=== PATIENT | female | born 1935 | race Caucasian/White ===

== ENCOUNTER 2018-02-02 10:20 | Day surgery (SDC) | payer MEDICARE, OTHER ==
[~2018-02-02 10:20] MED LIST: Buffered Lidocaine 0.9% SYRIN* 5 ML/SYR SYRINGE INTRADERM ONE
[2018-02-02] MEDS ORDERED: Lidocaine 2% PF * 5 ML VIAL ONE (11:50)
[2018-02-02] MEDS ORDERED: Propofol* 10 MG/ML 20 ML BTL ONE (11:50)
[2018-02-02] MEDS ORDERED: Cyclopentolate 1% OPTH.SOL* 2 ML BTL ONE (12:15)
[2018-02-02] MEDS ORDERED: Ketorolac 0.5% OPHTH (NF) 0.5 % 5 ML BTL ONE (12:15)
[2018-02-02] MEDS ORDERED: Phenylephrine 2.5% OPTH.SOL* 2 ML BTL ONE (12:15)
[2018-02-02] MEDS ORDERED: Lidocaine 1%* 5 ML VIAL ONE (12:15)
[2018-02-02] MEDS ORDERED: Neomycin/Polymy/Dex OPHTH.OIN* 3.5 GM ONE (12:15)
[2018-02-02] MEDS ORDERED: Tropicamide 1% OPTH.SOL* BTL ONE (12:15)
[2018-02-02] MEDS ORDERED: Tetracaine 0.5% OPTH.SOL 4 ML* 1 DROP BTL ONE (12:15)
[2018-02-02 12:28] VITALS: BP 110/71
--- NOTE | 2018-02-03 07:35 | OP ---
DATE OF OPERATION: 02/02/18 - [facility] DATE OF : 31 SURGEON: Toño Boyle MD. RETAIL SEASONAL SPECIALIST: None. ANESTHESIA: Topical with intravenous sedation. PRE-OP DIAGNOSIS: Cataract and glaucoma, left eye. POST-OP DIAGNOSIS: Cataract and glaucoma, left eye. OPERATIVE PROCEDURE: Phacoemulsification and cataract extraction with posterior chamber intraocular lens implant and iStent implant, left eye. COMPLICATIONS: None. BLOOD LOSS: None. DESCRIPTION OF PROCEDURE: The patient was brought to the operating room and given intravenous sedation. A drop of tetracaine was placed in her left eye. The patient was prepped and draped in the usual sterile fashion for ophthalmic surgery and attention was directed to the left eye where a speculum was placed. A paracentesis was created at the 5 o'clock position and 0.1 cc of 1% preservative- free lidocaine was injected into the anterior chamber followed by DisCoVisc. The eye was digitally stabilized while a 2.75 mm keratome was used to create a triplanar clear corneal incision at the 3 o'clock position. A continuous curvilinear capsulorrhexis was created with a cystotome and Utrata forceps. BSS on a cannula was used to hydrodissect the lens from the capsule. Phacoemulsification was performed in a [id number] technique to create 4 fragments, which were removed. Residual cortical material was removed with irrigation and aspiration. DisCoVisc was used to inflate the capsular bag. An [id number] 17.0 diopter lens was inserted into the capsular bag. Supplemental DisCoVisc was used to deepen the anterior chamber and coat the surface of the cornea. The patient's head was rotated away from the surgeon and the microscope was rotated toward the surgeon. A gonioprism was placed on the surface of the eye. An iStent leather cutter was introduced into the anterior chamber. Under direct visualization, an iStent inject was placed at the 8 o' clock and then 10 o'clock position. The leather cutter and prism were removed. The patient's head and the microscope were returned to the upright position. Irrigation and aspiration were performed to remove viscoelastic from the eye. BSS on the cannula was used to hydrate the corneal stroma and seal the wound. At the end of the case, the pupil was round. The lens was centered and stable. The iStent injects were in good position. The pressure appeared normal and the wound was water tight. The speculum was removed and topical Maxitrol ointment was placed on the surface of the eye. The eye was closed, patched and shielded and the patient was sent to the recovery room in stable condition with postoperative instructions and followup appointment given. [id number]/[facility] #: [id number] ZBIGNIEW
== END 2018-02-02 12:35 | disposition home or self-care (01) ==
LOC: OREAST 10:20
PROVIDERS: ATTEND Ophthalmology
DX: H25.12 Age-related nuclear cataract, left eye (principal); H40.1121 Primary open-angle glaucoma, left eye, mild stage; R00.2 Palpitations; K21.9 Gastro-esophageal reflux disease without esophagitis; Z85.3 Personal history of malignant neoplasm of breast; M81.0 Age-related osteoporosis without current pathological fracture
CPT/HCPCS: A9270-GY; C1783; J2704; V2632

== ENCOUNTER 2018-03-12 14:13 | Emergency (ER) | payer MEDICARE, OTHER ==
--- OUTSIDE RECORDS SUMMARY | 2018-03-12 14:41 | XMS REPORT | Continuity of Care Document ---
:1935 External Reference #:[id number] Author Name Halley Crum PA-C Address [facility] [id number] Care Team Providers Name Role Phone Estefania Moore MD Primary Care Physician Unavailable Payers Type Date Identification Numbers Payment Provider Subscriber Policy Number: [id number] Medicare Yuki Saavedra PayID: [id number] [facility] [address] [place] [address] Policy Number: [id number] [employer] Yuki Saavedra Group Number: [id number] [address] PayID: [id number] [place] [address] Advance Directives Description No Information Available Problems Date Description Provider Status Onset: 01/08/2012 Malignant tumor of colon Amor Gerber MD Active Onset: 01/08/2012 Irritable bowel syndrome Amor Gerber MD Active Onset: 01/08/2012 Generalized anxiety disorder Amor Gerber MD Active Onset: 01/08/2012 Gastroesophageal reflux disease Amor Gerber MD Active Onset: 02/12/2018 Nausea Halley Crum PA-C Active Onset: 02/12/2018 Epigastric pain Halley Crum PA-C Active Family History Description No Information Available Social History Type Date Description Comments Sex Unknown ETOH Use Occasionally consumes alcohol Tobacco Use Start: Unknown End: Unknown Patient is a former smoker Smoking Status Reviewed: 02/12/18 Patient is a former smoker Allergies, Adverse Reactions, Alerts Date Description Reaction Status Severity Comments 01/08/2012 Penicillin Active 01/08/2012 Sulfa Antibiotics Active 01/08/2012 Epinephrine Active 05/16/2013 Tamoxifen Active 01/05/2017 Cortisone Active Medications Medication Date Status Form Strength Qnty SIG Indications Ordering Provider Lansoprazole 02/[address] 30mg 30cap 1 cap by R10.13 Emeli s mouth daily Foor-Pess 30min before in, a meal Prolia 00 Active Solution 60mg/ml inject 60 mg Unknown /0000 subcutaneousl y every 6 months for osteoporosis. pt has medicare - no pa required. Omeprazole Active Capsules DR 20mg 1 by mouth Unknown OTC /0000 every day Latanoprost 00 Active Solution 0.005% Right Eye Unknown /0000 Daily Timolol 00 Active Solution 0.5% bid Right Eye Unknown Maleate /0000 (Daily) Anucort-HC 06/06 Hx Suppository 25mg 20uni 1 pr bid 455.3 Valeria floyd Syed - AMIRA-Scooter 09/24 No Active 01/07 Hx Unknown Medications /2011 - 06/06 Prevacid 24HR [address] 15mg 1 by mouth Unknown /0000 every day if - needed for 02/12 stomach Immunizations Description No Information Available Vital Signs Date Vital Result Comment 02/12/2018 8:26am Height 64 inches 5'4" Weight 176.00 lb BP Systolic 119 mmHg BP Diastolic 71 mmHg Heart Rate 76 /min BMI (Body Mass Index) 30.2 kg/m2 09/24/2016 1:28pm Height 64 inches 5'4" Weight 170.00 lb BP Systolic 128 mmHg BP Diastolic 86 mmHg Heart Rate 94 /min BMI (Body Mass Index) 29.2 kg/m2 06/20/2013 1:50pm Height 66.5 inches 5'6.50" Weight 178.00 lb BMI (Body Mass Index) 28.3 kg/m2 06/06/2013 9:11am Height 66.50 inches 5'6.50" 05/30/2013 10:59am Height 66.50 inches 5'6.50" 05/16/2013 10:04am Height 66.50 inches 5'6.50" Weight 177.00 lb BP Systolic 108 mmHg BP Diastolic 70 mmHg Heart Rate 76 /min BMI (Body Mass Index) 28.1 kg/m2 01/08/2012 3:00pm Height 66.50 inches 5'6.50" Weight 178.00 lb BP Systolic 120 mmHg BP Diastolic 80 mmHg Heart Rate 82 /min BMI (Body Mass Index) 28.3 kg/m2 Results Test Date Facility Test Result H/L Range Note CMP(!) 06/17/2016 [facility] Sodium(!) <pending> Potassium(!) <pending> Chloride Serum/Plasma(!) <pending> Carbon Dioxide Ser/Plasm(!) <pending> BUN - Urea Nitrogen(!) <pending> Calcium Ser/Plasma Mass/Vol(!) <pending> Creatinine Serum Mass/Vol(!) <pending> Glucose Serum(!) <pending> Uric Acid Ser/Plas Mass/Vol(!) <pending> BUN/Creatinine Ratio(!) <pending> Albumin Serum/Plasma(!) <pending> Alkaline Phosphatase(!) <pending> Bilirubin Total Mass/Vol(!) <pending> Ast - Sgot <pending> Alt - SGPT <pending> Protein Total <pending> Vitamin D 06/17/2016 [facility] Z#Other <pending> Observations Surgical 02/06/2012 [facility] S RUN DATE: Pathology <SEE NOTE> Todd 04/11/2011 [facility] Z#Other <pending> Observations 1 RUN DATE: 02/10/12 [facility] LAB LIVE PAGE 1 RUN TIME: [address] [place] [address] Specimen Inquiry Name: YUKI SAAVEDRA I : [address]: Buzz SARKAR,Amor Simmons Acct: [id number] Unit: [id number] AGE: 76 Location: ENDO Re02/06/12 SEX: F Status: PRE REF SPEC: [id number] REBECCA: 02/06/12- SUBM DR: Buzz SARKAR, Amor Simmons REQ: [id number] RECD: 02/09/12 STATUS: VANITA ECHOLS DR: Brandi SARKAR,Jerald _ ORDERED: LEVEL IV FINAL DIAGNOSIS Colon, transverse, biopsy: A. Tubular adenoma. B. No high grade dysplasia or malignancy. CLINICAL HISTORY History of colon cancer POST-OPERATIVE DIAGNOSIS Colonoscopy into terminal ileum, prep good - 2 anastomoses, patent and normal ; small transverse colon polyp removed; mild descending colon, diverticulosis; surgical changes GROSS DESCRIPTION The specimen is received in formalin labelled Yuki Saavedra, Transverse Colon Polyp, and consists of a reich, soft tissue fragment measuring 0.3 x 0.1 x 0.1 cm. Submitted entirely, one cassette. Signed (signature on file) Jt Haas MD 1253 END OF REPORT * ML=Testing performed at Main Lab DEPARTMENT OF PATHOLOGY, [address] [place] [address] Jt Haas M.D. Director [facility] Permit #[id number] Procedures Date Code Description Status 02/06/2012 11912 Colonscopy+Biopsy Completed 04/22/2010 43536 EGD+Biopsy Single Or Multiple Completed 11/13/2009 34319 Breath Hydrogen Completed 01/15/2007 71333 Colonscopy+Biopsy Completed 02/09/2004 66267 Colonoscopy With Sub.Injection Completed 02/09/2004 75230 Colonscopy+Biopsy Completed Encounters Type Date Location Provider Dx Diagnosis Office Visit 09/24/2016 [facility] Valeriaeliel Syed, R10.13 Epigastric pain 1:30p [facility] R14.0 Abdominal distension (gaseous) Office Visit 06/20/2013 [facility]enter[facility] Valeria Syed, 565.0 Anal Fissure 1:45p [facility] Office Visit 06/06/2013 Gastroenterology Valeria Syed, 565.0 Anal Fissure 9:15a [facility] 455.3 Hemorrhoids External W/O Complication Office Visit 05/30/2013 [facility]enterology Valeriaeliel Syed, 565.0 Anal Fissure 11:00a [facility] 455.3 Hemorrhoids External W/O Complication Office Visit 05/16/2013 [facility]enterology Valeria 565.0 Anal Fissure 10:00a [facility] Office Visit 01/08/2012 [facility]astroenterology Amor Simmons V10.05 Personal 3:00p [facility] History 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
--- OUTSIDE RECORDS SUMMARY | 2018-03-12 14:41 | XMS REPORT | Continuity of Care Document ---
:1935 External Reference #:[id number] Author Name Toño Boyle M.D. Address [address] [place] [address] [place] [address] Care Team Providers Name Role Phone Estefania Moore MD Care Team Information Residential Real Estate Sales Manager Unavailable Estefania Moore MD Primary Care Physician Unavailable Payers Type Date Identification Numbers Payment Provider Subscriber Policy Number: [id number] Medicare [place] Yuki Mendoza PayID: [id number] [address] [place] [address] Policy Number: [id number] Aetna [facility] Yuki Mendoza Group Number: [id number] [address] PayID: [id number] [place] [address] Advance Directives Description No Information Available Problems Date Description Provider Status Onset: 01/31/2015 Primary open-angle glaucoma, mild stage Carroll Ashford O.D. Active Onset: 01/09/2015 Presbyopia Stephanie Gutierres O.D. Active Onset: 01/09/2015 Regular astigmatism Stephanie Gutierres O.D. Active Onset: 01/09/2015 Myopia Stephanie Gutierres O.D. Active Onset: 01/09/2015 Presence of intraocular lens Stephanie Gutierres O.D. Active Onset: 01/09/2015 Nuclear senile cataract Stephanie uGtierres O.D. Active Onset: 01/09/2015 Hemorrhage in optic nerve sheaths Stephanie Gutierres O.D. Active Onset: 01/09/2015 Ocular hypertension Stephanie Gutierres O.D. Active Onset: 01/09/2015 Nonexudative age-related macular Stephanie Gutierres O.D. Active degeneration Onset: 07/25/2013 Tear film insufficiency Carroll Ashford O.D. Active Onset: 07/25/2013 Vitreous degeneration Carroll Dejon, O.D. Active Family History Date Family Member(s) Problem(s) Comments Father Noncontributory Mother Noncontributory Social History Type Date Description Comments Sex Unknown ETOH Use Rarely consumed alcohol in the past Tobacco Use Start: Unknown End: Unknown Patient is a former smoker Smoking Status Reviewed: 03/11/18 Patient is a former smoker Allergies, Adverse Reactions, Alerts Date Description Reaction Status Severity Comments 07/25/2013 Ibuprofen Active 07/25/2013 Sulfacetamide Active 07/25/2013 Aspirin Active 01/09/2015 Epinephrine Active Medications Medication Date Status Form Strength Qnty SIG Indications Ordering Provider Prolia Active Solution 60mg/ml 60 mg Unknown 000 sc q6mon No Active Hx Unknown Medications 019 - 019 Timolol Maleate Hx Solution 0.5% 10ml 1 drops H40.1133 Toño 018 - both Boyle, eyes M.D. 019 twice a day Vigamox Hx Solution 0.5% 9ml 1 drop Toño 018 - drops Boyle, left M.D. 018 eye four times a day Ketorolac Hx Solution 0.5% 10ml 1 drops Toño Tromethamine 018 - left Boyle, eye M.D. 019 twice a day Pred Forte Hx Suspension 1% 10ml 1 drops Toño 018 - left Boyle, eye M.D. 019 four times a day Latanoprost Hx Solution 0.005% 2.500m 1 drops H40.11x1 Carroll 015 - l [facility], eyes O.D. 019 every night Silver Hx Cream 1% Unknown Sulfadiazine 000 - 018 Xarelto Hx Tablets 15mg Cardina 000 - , Jerald 019 Propranolol HCL Hx Tablets 20mg Unknown 000 - [address] 15mg Unknown 000 - 019 Immunizations Description No Information Available Vital Signs Date Vital Result Comment 03/11/2018 11:30am Intraocular Pressure Right Eye 18 mmHg Intraocular Pressure Left Eye 16 mmHg 02/09/2018 9:59am Intraocular Pressure Right Eye 14 mmHg Intraocular Pressure Left Eye 19 mmHg 02/03/2018 11:41am Intraocular Pressure Left Eye 19 mmHg 01/25/2018 11:53am Intraocular Pressure Right Eye 17 mmHg Intraocular Pressure Left Eye 17 mmHg 01/11/2018 1:11pm Intraocular Pressure Right Eye 17 mmHg Intraocular Pressure Left Eye 17 mmHg Cornea Thickness Left Eye 578 m Cornea Thickness Right Eye 589 m Pachymetry adjusted IOP Right Eye -2 Pachymetry adjusted IOP Left Eye -3 01/31/2015 2:42pm Intraocular Pressure Right Eye 17 mmHg Intraocular Pressure Left Eye 22 mmHg Cornea Thickness Left Eye 539107 m Cornea Thickness Right Eye 144758 m Pachymetry adjusted IOP Right Eye -4 Pachymetry adjusted IOP Left Eye -2 01/09/2015 11:28am Intraocular Pressure Right Eye 18 mmHg Intraocular Pressure Left Eye 25 mmHg Results Description No Information Available Procedures Date Code Description Status 03/11/2018 09834 Ophthalmoscopy Subsequent Completed 03/11/2018 80802 Oct Retina Completed 03/11/2018 52585 Eye Exam Est Intermediate Completed 02/02/2018 17482 Extracapsular Cataract Extraction W/Intraocular Lens Completed 02/02/2018 0474T Insertion Of Anterior Segment Aqueous Drainage Device Completed 01/25/2018 74357 Oct, Optic Nerve Completed 01/25/2018 76621 Visual Field Exam Extended, Unilateral Or Bilateral Completed 01/25/2018 07228 Eye Exam Est Intermediate Completed 01/11/2018 65560 Eye Exam Est Comprehensive Completed 01/11/2018 76437 Ophthalmic Biometry By Partial Coherence Interferometry Completed W/Intra 01/11/2018 45120 Ophthalmoscopy Subsequent Completed 01/11/2018 16574 Fundus Photography W/Interpretation & Report Completed 01/31/2015 42334 Oct, Optic Nerve Completed 01/31/2015 38357 Visual Field Exam Extended, Unilateral Or Bilateral Completed 01/31/2015 05477 Gonioscopy Completed 01/31/2015 85592 Eye Exam Est Intermediate Completed 01/31/2015 38214 Corneal Pachymetry, Unilateral/Bilateral Completed 01/09/2015 26964 Eye Exam Est Comprehensive Completed 01/09/2015 71957 Refraction Completed 01/09/2015 05255 Ophthalmoscopy Initial Completed 01/09/2015 15039 Fundus Photography W/Interpretation & Report Completed 07/25/2013 39289 Refraction Completed 07/25/2013 73162 Eye Exam Est Intermediate Completed 06/10/2011 72115 Ophthalmoscopy Subsequent Completed 06/10/2011 59639 Eye Exam Est Intermediate Completed 04/21/2011 15615 Extracapsular Cataract Extraction W/Intraocular Lens Completed 03/05/2011 36769 Ophthalmic Biometry By Partial Coherence Interferometry Completed W/Intra 03/05/2011 61452 Eye Exam Est Intermediate Completed 02/05/2011 89321 Eye Exam Est Comprehensive Completed 02/05/2011 95140 Refraction Completed 01/16/2010 17489 Ophthalmoscopy Subsequent Completed 01/16/2010 09191 Eye Exam Est Comprehensive Completed 12/15/2008 12510 Ophthalmoscopy Initial Completed 12/15/2008 12204 Refraction Completed 12/15/2008 87441 Eye Exam Est Comprehensive Completed 12/15/2008 86570 Eye Exam New Comprehensive Completed 09/29/2007 94837 Eye Exam New Comprehensive Completed 07/09/2006 99057 Refraction Completed 07/09/2006 61719 Eye Exam Est Intermediate Completed 06/08/2006 12168 Eye Exam New Comprehensive Completed Encounters Description No Information Available Plan of Treatment 03/11/2018 - Toño Boyle M.D.H40.1131 Primary open-angle glaucoma, bilateral , mild bcdnvA01.3131 Nonexudative age-related macular degeneration, bilateral, eaZ96.1 Presence of intraocular lensFollow up:few wks oct mac, iop
--- OUTSIDE RECORDS SUMMARY | 2018-03-12 14:41 | XMS REPORT | Continuity of Care Document ---
:1935 External Reference #:[id number] Author Name Bobbi Engle Care Team Providers Name Role Phone Estefania Moore MD Primary Care Physician Unavailable Payers Type Date Identification Numbers Payment Provider Subscriber Effective: Policy Number: [id number] Medicare Yuki Mendoza 1998 PayID: [id number] [address] [place] [address] Effective: 1998 Policy Number: [employer] Yuki Mendoza [id number] Group Number: [id number] [address] PayID: [id number] [place] [address] Advance Directives Description No Information Available Problems Date Description Provider Status Onset: 09/05/2014 Osteoarthritis of knee Nnamdi Weinberg M.D. Active Onset: 01/03/2015 Localized, primary osteoarthritis Nnamdi Weinberg M.D. Active Onset: 07/06/2017 Multiple fractures of pelvis without Anikta Jim M.D. Active disruption of pelvic ring, initial encounter for closed fracture Family History Date Family Member(s) Problem(s) Comments General Arthritis Social History Type Date Description Comments Sex Unknown Marital Status Lives With Occupation retired probation agent for [employer] ETOH Use Occasionally consumes alcohol ETOH Use Occasionally consumes wine ETOH Use She used to drink 1 glass of wine daily ETOH Use However she has cut back on wine and coffee Tobacco Use Start: Unknown End: Patient is a former smoker Quit age 26 Unknown Recreational Drug Use Denies Drug Use Smoking Status Reviewed: 02/11/18 Patient is a former smoker Quit age 26 Exercise Type/Frequency Exercises rarely Allergies, Adverse Reactions, Alerts Date Description Reaction Status Severity Comments 09/28/2014 Penicillins Nausea and Vomiting Active 09/28/2014 Codeine Rash Active 09/28/2014 Aspirin GI Upset Active 09/28/2014 Ibuprofen GI Upset Active 09/28/2014 Cortisone Tachycardia Active 09/28/2014 Epinephrine Tachycardia Active 07/18/2015 Epinephrine Active 12/22/2016 Clindamycin GI Upset Active Moderate 04/21/2014 NKDA Inactive 07/11/2014 NKDA Inactive Medications Medication Date Status Form Strength Qnty SIG Indications Ordering Provider Neoprenkrish 09/15 Active Misc 2unit use daily for M17.12 Edgar Patella Knee s the left knee Steven Fonseca/Large for M.DMorales stabilization Prolia 08/22 Active Solution 60mg/ml 60mg 60 mg sc q6mon M81.0 Edgar /2015 Elizabeth Fonseca Vitamin B12 00 Active 1 talet Unknown /0000 Biotin 00 Active Capsules 1000mcg 1 by mouth Unknown /0000 every day Potassium OTC Active 99mg. 1 by mouth Unknown /0000 every day Tums Active Chewtabs 500mg as needed Unknown /0000 heartburn Vitamin D3 High Active Capsules 1500Units 1 by mouth Unknown Potency /0000 every day Latanoprost Active Solution 0.005% 1gtt once Unknown /0000 daily to both eyes DGL Licorish Active Unknown Root /0000 Fiber-Lax Active Tablets 625mg take 2 tablets Unknown /0000 by mouth two times a day Prevacid Active Capsules 15mg 1 by mouth Unknown /0000 DR every day Vitamin B-1 Active Tablets 100mg 1 by mouth Unknown /0000 every day Calcium 1000 + 00 Active Tablets 1000-800m 1 by mouth Unknown D /0000 g-Unit every day Eye Drops Active Unknown /0000 Voltaren Active Gel 1% apply 2 grams Unknown /0000 twice daily as needed for pa Timolol Maleate Active Solution 0.25% 1 drop per eye Unknown /0000 daily Chelated Active Tablets 95mg 1 per day Unknown Potassium /0000 Ketorolac Active Solution 0.5% as directed Unknown Tromethamine /0000 Clindamycin HCL 11/12 Hx Capsules 300mg 2caps 600mg 1 hours prior to Lenard, - dental work M.D. 12/22 Percocet 10/13 Hx Tablets 5-325mg 60tab 1-2 by mouth s every 4 to 6 Lenard, - hours as M.D. 11/22 needed pain Tramadol HCL 09/05 Hx Tablets 50mg 60tab 1-2 tabs by s mouth bid with Lenard, - 1 to 2 ES M.D. 11/22 Tylenol as needed for pain Voltaren 07/24 Hx Gel 1% 300g Not Using Lenard, - M.D. 11/22 Gabapentin 04/18 Hx Capsules 100mg 60cap Take one s capsule by Lenard, - mouth two M.D. 06/07 times a day needed for nerve pain Mobic 02/17 Hx Tablets 7.5mg 60tab 1 po bid as s needed Lenard - M.D. 05/11 Potassium 00/00 Hx Unknown /0000 - 07/17 Vitamin D3 High 0000 Hx Unknown Potency /0000 - 11/22 Claritin 00/00 Hx Tablets 10mg by mouth every Unknown /0000 day as needed - 11/22 Clonazepam 0000 Hx Tablets 1mg 1/4 tab qhs Unknown /0000 - 07/07 Acetaminophen 00/00 Hx Capsules 500mg 1 by mouth as Unknown /0000 needed - 11/22 Calcium 600 + D 0000 Hx Tablets 600-200mg 1 by mouth Unknown /0000 -Unit twice a day - 08/16 Calcitonin 00/00 Hx Solution 200Unit/A one spray to Unknown (Allen) /0000 ct nostril; - switching 11/22 nostrils every onther day Sucralfate 00/00 Hx Tablets 1gm 1 by mouth 3 Unknown /0000 times a day - 11/22 Calcium 1200+D3 00/00 Hx Tablets 600-40-50 1 by mouth Unknown /0000 ER 24HR 0mg-mg-Un every day - it 11/22 Vitamin E 00/00 Hx Capsules 200Unit 1 by mouth Unknown /0000 every day - 12/21 Tramadol HCL 00/00 Hx Unknown /0000 - 08/30 Medications Administered in Office Medication Date Status Form Strength Qnty SIG Indications Ordering Provider Prolia Administered Injection Edgar Injection, 018 Raymundo, Denosumab, 1MG M.D. Synvisc Or Administered Injection Ankita Synvisc-One 018 Hernán, M.D. Injection 1 MG Synvisc Or Administered Injection Ankita Synvisc-One 018 Hernán, M.D. Injection 1 MG Synvisc Or Administered Injection Ankita Synvisc-One 018 Hernán, M.D. Injection 1 MG Prolia Administered Injection Edgar Injection, 018 Raymundo, Denosumab, 1MG M.D. Prolia Administered Injection Edgar Injection, 017 Raymundo, Denosumab, 1MG M.D. Prolia Administered Injection Edgar Injection, 017 Raymundo, Denosumab, 1MG M.D. Synvisc Or Administered Injection Nnamdi Synvisc-One 016 Lenard, Injection 1 MG M.D. Synvisc Or Administered Injection Nnamdi Synvisc-One 016 Lenard, Injection 1 MG M.D. Synvisc Or Administered Injection Nnamdi Synvisc-One 016 Lenard, Injection 1 MG M.D. Prolia Administered Injection Edgar Injection, 016 Raymundo, Denosumab, 1MG M.D. Depomedrol Administered Injection Nnamdi 80MG 015 Elizabeth Weinberg Depomedrol Administered Injection Nnamdi 80MG 015 Elizabeth Weinberg Depomedrol Administered Injection Nnamdi 80MG 011 Elizabeth Weinberg Immunizations CPT Code Status Date Vaccine Reaction Lot # [id number] Given 12/04/2015 Influenza Virus Vaccine, No reaction noted [id number] Quadrivalent, Split, Preservative Free Vital Signs Date Vital Result Comment 02/11/2018 1:47pm Height 66 inches 5'6" Weight 176.00 lb w/ shoes Heart Rate 58 /min irregular BP Systolic Sitting 122 mmHg BP Diastolic Sitting 79 mmHg BMI (Body Mass Index) 28.4 kg/m2 09/15/2017 11:14am Height 66 inches 5'6" Weight 172.12 lb Heart Rate 90 /min BP Systolic 129 mmHg BP Diastolic 75 mmHg Respiratory Rate 14 /min Pain Level 1 BMI (Body Mass Index) 27.8 kg/m2 08/31/2017 11:05am Height 66 inches 5'6" Weight 173.00 lb Heart Rate 84 /min BP Systolic 134 mmHg BP Diastolic 86 mmHg BMI (Body Mass Index) 27.9 kg/m2 08/07/2017 10:27am Height 63 inches 5'3" Weight 171.00 lb Heart Rate 72 /min BP Systolic 138 mmHg BP Diastolic 80 mmHg BMI (Body Mass Index) 30.3 kg/m2 07/31/2017 11:27am Height 63 inches 5'3" Weight 171.00 lb Heart Rate 76 /min BP Systolic 128 mmHg BP Diastolic 82 mmHg BMI (Body Mass Index) 30.3 kg/m2 07/22/2017 10:52am Height 66.5 inches 5'6.50" Weight 170.00 lb Heart Rate 84 /min BP Systolic 110 mmHg BP Diastolic 80 mmHg Respiratory Rate 20 /min Body Temperature 97.9 F Pain Level 2 with walking BMI (Body Mass Index) 27.0 kg/m2 03/18/2017 1:00pm Height 66.5 inches 5'6.50" Weight 170.00 lb Heart Rate 84 /min BP Systolic Sitting 130 mmHg BP Diastolic Sitting 80 mmHg Respiratory Rate 14 /min Pain Level 1 BMI (Body Mass Index) 27.0 kg/m2 12/22/2016 11:52am Height 66.5 inches 5'6.50" Weight 174.00 lb with shoes Heart Rate 74 /min BP Systolic Sitting 124 mmHg BP Diastolic Sitting 82 mmHg O2 % BldC Oximetry 96 % BMI (Body Mass Index) 27.7 kg/m2 09/15/2016 2:53pm Height 66.5 inches 5'6.50" Weight 170.00 lb Heart Rate 84 /min BP Systolic Sitting 140 mmHg BP Diastolic Sitting 90 mmHg Respiratory Rate 14 /min Pain Level 1 BMI (Body Mass Index) 27.0 kg/m2 06/16/2016 1:44pm Height 66.5 inches 5'6.50" Weight 170.00 lb Heart Rate 89 /min BP Systolic Sitting 114 mmHg BP Diastolic Sitting 75 mmHg Respiratory Rate 14 /min Body Temperature 97.5 F BMI (Body Mass Index) 27.0 kg/m2 03/24/2016 4:53pm Height 66.5 inches 5'6.50" Weight 173.25 lb Heart Rate 68 /min BP Systolic Sitting 140 mmHg BP Diastolic Sitting 70 mmHg Respiratory Rate 14 /min Body Temperature 97.1 F Pain Level 0 BMI (Body Mass Index) 27.5 kg/m2 12/26/2015 11:08am Height 66.5 inches 5'6.50" Weight 168.00 lb BP Systolic Sitting 118 mmHg BP Diastolic Sitting 68 mmHg Pain Level 1 03/18 discomfort BMI (Body Mass Index) 26.7 kg/m2 12/19/2015 10:45am Height 66.5 inches 5'6.50" Heart Rate 68 /min BP Systolic Sitting 122 mmHg BP Diastolic Sitting 70 mmHg Pain Level 3 pain when walking 12/12/2015 10:46am Height 66.5 inches 5'6.50" Weight 171.00 lb Pain Level 3 L knee 0-R BMI (Body Mass Index) 27.2 kg/m2 12/04/2015 4:43pm BP Systolic Sitting 118 mmHg BP Diastolic Sitting 70 mmHg 12/04/2015 3:00pm Height 64.5 inches 5'4.50" Heart Rate 72 /min BP Systolic 118 mmHg BP Diastolic 70 mmHg BP Systolic Sitting 94 mmHg BP Diastolic Sitting 60 mmHg Respiratory Rate 14 /min Pain Level 5 11/23/2015 11:17am Height 64.5 inches 5'4.50" Weight 169.00 lb Heart Rate 80 /min BP Systolic Sitting 122 mmHg BP Diastolic Sitting 82 mmHg Body Temperature 98.0 F Pain Level 2 BMI (Body Mass Index) 28.6 kg/m2 10/24/2015 12:56pm Height 64.5 inches 5'4.50" Weight 167.00 lb Pain Level 3 BMI (Body Mass Index) 28.2 kg/m2 09/04/2015 10:40am Height 64.5 inches 5'4.50" Weight 167.12 lb Heart Rate 100 /min BP Systolic Sitting 122 mmHg BP Diastolic Sitting 70 mmHg Respiratory Rate 14 /min Body Temperature 98.3 F Pain Level 2 BMI (Body Mass Index) 28.2 kg/m2 08/17/2015 11:55am Height 64.5 inches 5'4.50" Weight 164.00 lb Heart Rate 100 /min BP Systolic Sitting 120 mmHg BP Diastolic Sitting 60 mmHg Respiratory Rate 14 /min Body Temperature 97.1 F Pain Level 0 BMI (Body Mass Index) 27.7 kg/m2 07/18/2015 2:49pm Height 64.5 inches 5'4.50" Weight 164.00 lb Heart Rate 100 /min BP Systolic Sitting 120 mmHg BP Diastolic Sitting 74 mmHg Respiratory Rate 14 /min Body Temperature 98.6 F Pain Level 5 BMI (Body Mass Index) 27.7 kg/m2 04/05/2015 11:37am Height 66.5 inches Weight 180.00 lb Pain Level 0 BMI (Body Mass Index) 28.6 kg/m2 01/03/2015 11:40am Height 66.5 inches 5'6.50" Weight 180.00 lb Pain Level 0 BMI (Body Mass Index) 28.6 kg/m2 10/27/2014 11:39am Height 66.5 inches 5'6.50" Weight 180.00 lb Body Temperature 99.1 F Pain Level 3 BMI (Body Mass Index) 28.6 kg/m2 09/05/2014 11:14am Height 66.5 inches 5'6.50" Weight 180.00 lb Pain Level 8 BMI (Body Mass Index) 28.6 kg/m2 08/01/2014 4:20pm Height 66.5 inches 5'6.50" Weight 180.00 lb Pain Level 8 BMI (Body Mass Index) 28.6 kg/m2 07/11/2014 11:51am Height 66.5 inches 5'6.50" Weight 175.00 lb Pain Level 8 BMI (Body Mass Index) 27.8 kg/m2 05/16/2014 2:20pm Heart Rate 90 /min BP Systolic 130 mmHg BP Diastolic 84 mmHg 04/18/2014 3:02pm Heart Rate 90 /min BP Systolic 131 mmHg BP Diastolic 87 mmHg Results Test Date Facility Test Result H/L Range Note Laboratory test 03/12/2017 [facility] Erythrocyte Sed 29 mm/Hr N 0-[address] [place] [address] [phone] C Reactive Protein 1.72 mg/L N < 5.00 1 Basic Metabolic Panel 03/12/2017 [facility] Sodium 139 mmol/L N 133-[address] [place] [address] [phone] Potassium 4.0 mmol/L N 3.5-5.0 Chloride 107 mmol/L N 101-111 Co2 Carbon Dioxide 28 mmol/L N 22-32 Anion Gap 4 mmol/L N 2-11 Glucose 101 mg/dL High 70-100 Blood Urea Nitrogen 15 mg/dL N 6-24 Creatinine 0.95 mg/dL N 0.51-0.95 BUN/Creatinine Ratio 15.8 N 8-20 Calcium 8.9 mg/dL N 8.6-10.3 Egfr Non- 56.2 >60 Egfr 72.2 >60 2 Laboratory test 06/17/2016 [facility] Erythrocyte Sed 23 mm/Hr N 0-40 [address] [place] [address] [phone] Vitamin D 1,25 06/17/2016 [facility] Vitamin D Total 61.6 ng/mL High 30-50 4 And Vitamin D,[address](Oh) [place] [address] [phone] Vitamin D, 1,25 Dihydroxy 58 pg/mL N 18-78 5 Comp Metabolic Panel 06/17/2016 [facility] Sodium 138 mmol/L N 133-[address] [place] [address] [phone] Potassium 4.1 mmol/L N 3.5-5.0 Chloride 104 mmol/L N 101-111 Co2 Carbon Dioxide 28 mmol/L N 22-32 Anion Gap 6 mmol/L N 2-11 Glucose 90 mg/dL N 70-100 Blood Urea Nitrogen 13 mg/dL N 6-24 Creatinine 0.80 mg/dL N 0.51-0.95 BUN/Creatinine Ratio 16.3 N 8-20 Calcium 9.6 mg/dL N 8.6-10.3 Total Protein 6.6 g/dL N 6.4-8.9 Albumin 3.7 g/dL N 3.2-5.2 Globulin 2.9 g/dL N 2-4 Albumin/Globulin Ratio 1.3 N 1-3 Total Bilirubin 0.50 mg/dL N 0.2-1.0 Alkaline Phosphatase 41 U/L N 34-104 Alt 9 U/L N 7-52 Ast 15 U/L N 13-39 Egfr Non- 68.5 N >60 Egfr 88.1 N >60 6 Laboratory test 06/17/2016 [facility] Creatine 57 U/L N 10- 223 [address] Kinase(CK) [place] [address] [phone] Comp Metabolic 12/03/2015 [facility] Sodium 137 N 133-[address] mmol/[place] [address] [phone] Potassium 4.3 mmol/L N 3.5-5.0 Chloride 106 mmol/L N 101-111 Co2 Carbon Dioxide 25 mmol/L N 22-32 Anion Gap 6 mmol/L N 2-11 Glucose 94 mg/dL N 70-100 Blood Urea Nitrogen 16 mg/dL N 6-24 Creatinine 0.77 mg/dL N 0.51-0.95 BUN/Creatinine Ratio 20.8 High 8-20 Calcium 9.0 mg/dL N 8.6-10.3 Total Protein 6.3 g/dL Low 6.4-8.9 Albumin 3.7 g/dL N 3.2-5.2 Globulin 2.6 g/dL N 2-4 Albumin/Globulin Ratio 1.4 N 1-3 Total Bilirubin 0.40 mg/dL N 0.2-1.0 Alkaline Phosphatase 42 U/L N 34-104 Alt 10 U/L N 7-52 Ast 16 U/L N 13-39 Egfr Non- 71.8 N >60 Egfr 92.3 N >60 8 Laboratory test 12/03/2015 [facility] Creatine 60 U/L N 10- 223 [address] Kinase(CK) [place] [address] [phone] C Reactive Protein < 1.00 mg/L N < 5.00 10 Phosphorus 3.9 mg/dL N 2.5-5.0 11 Vitamin D Total 25(Oh) 50.9 ng/mL High 30-50 12 Laboratory test 09/13/2015 [facility] Cytology SEE RESULT [address] [employer] [place] [address] [phone] Comp Metabolic 07/20/2015 [facility] Sodium 138 mmol/L N 133- [address] [place] [address] [phone] Potassium 4.2 mmol/L N 3.5-5.0 Chloride 106 mmol/L N 101-111 Co2 Carbon Dioxide 27 mmol/L N 22-32 Anion Gap 5 mmol/L N 2-11 Glucose 87 mg/dL N 70-100 Blood Urea Nitrogen 13 mg/dL N 6-24 Creatinine 0.68 mg/dL N 0.51-0.95 BUN/Creatinine Ratio 19.1 N 8-20 Calcium 9.2 mg/dL N 8.6-10.3 Total Protein 6.2 g/dL Low 6.4-8.9 Albumin 3.7 g/dL N 3.2-5.2 Globulin 2.5 g/dL N 2-4 Albumin/Globulin Ratio 1.5 N 1-3 Total Bilirubin 0.40 mg/dL N 0.2-1.0 Alkaline Phosphatase 64 U/L N 34-104 Alt 8 U/L N 7-52 Ast 13 U/L N 13-39 Egfr Non- 82.8 N >60 Egfr 106.5 N >60 14 Laboratory test 07/20/2015 [facility] Erythrocyte Sed 26 mm/Hr N 0-40 [address] [place] [address] [phone] Protein 07/20/2015 [facility] Total 6.6 g/dL N 6.3 - Electrophoresis [address] Protein(Pep) 7.9 [place] [address] [phone] Albumin 3.2 g/dL Abnormal 3.4-4.7 Alpha-1 Globulin 0.3 g/dL N 0.1-0.3 Alpha-2 Globulin 1.0 g/dL N 0.6-1.0 Beta Globulin 0.9 g/dL N 0.7-1.2 Gamma Globulin 1.2 g/dL N 0.6-1.6 Albumin/Globulin Ratio 0.93 N Impression See Comment N 16 Laboratory test 06/29/2015 [facility] TSH (Thyroid 1.42 ?IU/mL N 0.34-5.[address] Stim Horm) [place] [address] [phone] Vitamin D Total 25(Oh) 32.2 ng/mL N 30-50 Pthi 06/29/2015 [facility] Calcium (PTH Intact) 9.2 mg/dL N 8.6-10.[address] [place] [address] [phone] PTH Intact 3.0 pmol/L N 1.3-9.3 Type & Screen 09/25/2014 [facility] Patient Blood Type O Positive N [address] [place] [address] [phone] Antibody Screen NEGATIVE N Laboratory test 09/25/2014 [facility] Urine Culture And SEE RESULT [address] [place] [address] [phone] Basic Metabolic 09/25/2014 [facility] Sodium 138 mmol/L N 133- [address] [place] [address] [phone] Potassium 4.1 mmol/L N 3.5-5.0 Chloride 105 mmol/L N 101-111 Co2 Carbon Dioxide 27 mmol/L N 22-32 Anion Gap 6 mmol/L N 2-11 Glucose 93 mg/dL N 70-100 Blood Urea Nitrogen 13 mg/dL N 6-24 Creatinine 0.82 mg/dL N 0.51-0.95 BUN/Creatinine Ratio 15.9 N 8-20 Calcium 9.2 mg/dL N 8.6-10.3 Egfr Non- 66.9 N >60 Egfr 86.0 N >60 19 Urinalysis Profile 09/25/2014 [facility] Urine Color Yellow [address] [place] [address] [phone] Urine Appearance Cloudy N Urine Specific [place] 1.017 N 1.010-1.030 Urine pH 5.0 N 5-9 Urine Urobilinogen Negative N Negative Urine Ketones Trace Abnormal Negative Urine Protein Negative N Negative Urine Leukocytes 3+ Abnormal Negative Urine Blood 1+ Abnormal Negative Urine Nitrite Negative N Negative Urine Bilirubin Negative N Negative Urine Glucose Negative N Negative Urine White Blood Cell 3+(>20/hpf) Abnormal Absent Urine Red Blood Cell 3+(>10/hpf) Abnormal Absent Urine Bacteria 1+ Abnormal Absent Urine Squamous Epithelial Cell Present Abnormal Absent Urine Transitional Epithelial Present Abnormal Absent Laboratory test 09/25/2014 [facility] Inr/Protime 0.85 N 0.78- 1.07 [address] [place] [address] [phone] CBC No Diff 09/25/2014 [facility] White Blood 7.4 N 4.8-10.[address] Count 10^3/[place] [address] [phone] Red Blood Count 4.37 10^6/uL N 4.0-5.4 Hemoglobin 13.7 g/dL N 12.0-16.0 Hematocrit 42 % N 35-47 Mean Corpuscular Volume 96 fL N 80-97 Mean Corpuscular Hemoglobin 31 pg N 27-31 Mean Corpuscular HGB Conc 32 g/dL N 31-36 Red Cell Distribution Width 14 % N 10.5-15 Platelet Count 166 10^3/uL N 150-450 Mean Platelet Volume 11 um3 High 7.4-10.4 1 Acute inflammation: >10.00 2 Because ethnic data is not always readily available, this report includes an eGFR for both -Americans and non- Americans. The National Kidney Disease Education Program (NKDEP) does not endorse the use of the MDRD equation for patients that are not between the ages of 18 and 70, are , have extremes of body size, muscle mass, or nutritional status, or are non- or non-. According to the National Kidney Foundation, irrespective of diagnosis, the stage of the disease is based on the level of kidney function: Stage Description GFR(mL/min/1.73 m(2)) 1 Kidney damage with normal or decreased GFR 90 2 Kidney damage with mild decrease in GFR 60-89 3 Moderate decrease in GFR 30-59 4 Severe decrease in GFR 15-29 5 Kidney failure <15 (or dialysis) 3 Please check today 4 Please check today 5 ADDITIONAL INFORMATION This test was developed and its performance characteristics determined by [facility] in a manner consistent with CLIA requirements. This test has not been cleared or approved by the U.S. Food and Drug Administration. Test Performed by: [facility] - [address] [address] 6 Because ethnic data is not always readily available, this report includes an eGFR for both -Americans and non- Americans. The National Kidney Disease Education Program (NKDEP) does not endorse the use of the MDRD equation for patients that are not between the ages of 18 and 70, are , have extremes of body size, muscle mass, or nutritional status, or are non- or non-. According to the National Kidney Foundation, irrespective of diagnosis, the stage of the disease is based on the level of kidney function: Stage Description GFR(mL/min/1.73 m(2)) 1 Kidney damage with normal or decreased GFR 90 2 Kidney damage with mild decrease in GFR 60-89 3 Moderate decrease in GFR 30-59 4 Severe decrease in GFR 15-29 5 Kidney failure <15 (or dialysis) 7 Please check today 8 Because ethnic data is not always readily available, this report includes an eGFR for both -Americans and non- Americans. The National Kidney Disease Education Program (NKDEP) does not endorse the use of the MDRD equation for patients that are not between the ages of 18 and 70, are , have extremes of body size, muscle mass, or nutritional status, or are non- or non-. According to the National Kidney Foundation, irrespective of diagnosis, the stage of the disease is based on the level of kidney function: Stage Description GFR(mL/min/1.73 m(2)) 1 Kidney damage with normal or decreased GFR 90 2 Kidney damage with mild decrease in GFR 60-89 3 Moderate decrease in GFR 30-59 4 Severe decrease in GFR 15-29 5 Kidney failure <15 (or dialysis) 9 Please check this month 10 Acute inflammation: >10.00 11 Please check this month 12 Please check this month 13 SEE RESULT BELOW Name: QUENTINSALIMAYUKI I : [address]: Medardo Rowley MD Acct: [id number] Unit: [id number] AGE: 80 Location: THYROID Re09/13/15 SEX: F Status: REG REF SPEC: [id number] REBECCA: 09/13/15-[address]: Redd Méndez MD REQ: [id number] RECD: 09/13/15 STATUS: VANITA ECHOLS DR: Medardo Fonseca MD _ ORDERED: FN ASP DEEP/2, FNA IMMEDIATE S/2 FINAL DIAGNOSIS 1) Thyroid, right, Ultrasound guided, fine needle aspiration: Benign thyroid nodule- colloid/hyperplastic type. (Elmer Class II). 2) Thyroid, left, Ultrasound guided, fine needle aspiration: Benign thyroid nodule- colloid/hyperplastic type. (Elmer Class II). 1) The specimen demonstrates abundant watery colloid, a moderate amount of benign appearing follicular epithelium arranged in uniform sheets, medium sized follicles and only occasional small groups. No features of papillary carcinoma are seen. In this clinical setting the risk of malignancy is less than 3%. Clinical management of this thyroid nodule should be based on clinical and radiographic features as well as the above. 2) The specimen demonstrates abundant watery colloid, a moderate amount of benign appearing follicular epithelium arranged in uniform sheets, medium sized follicles and only occasional small groups. No features of papillary carcinoma are seen. In this clinical setting the risk of malignancy is less than 3%. Clinical management of this thyroid nodule CONTINUED ON NEXT PAGE * ML=Testing performed at Main Lab DEPARTMENT OF PATHOLOGY, [address] [place] [address] Jt Haas M.D. Director JACKIE # [id number] RUN DATE: 09/13/15 [facility] LAB LIVE PAGE 2 Patient: YUKI MENDOZA I [id number] (Continued) SPECIMEN COMMENTS (Continued) should be based on clinical and radiographic features as well as the above. 1) #1. THYROID RIGHT - US GUIDED FINE NEEDLE ASPIRATION RIGHT THYROID, #2. THYROID LEFT - US GUIDED FINE NEEDLE ASPIRATION LEFT THYROID CLINICAL HISTORY 1) Right thyroid nodule 2) Left thyroid nodule 9 x 8 x 9 mm IMMEDIATE INTERPRETATION 1) Pass 1-adequate 2) Pass 1-adequate GROSS DESCRIPTION 1) 1 - alcohol fixed slide(s) 1 - passes 2) 1 - alcohol fixed slide(s) 1 - passes Signed (signature on file) Jt Haas MD 1133 END OF REPORT * ML=Testing performed at Main Lab DEPARTMENT OF PATHOLOGY, [address] [place] [address] Jt Haas M.D. Director [facility] # [id number] 14 Because ethnic data is not always readily available, this report includes an eGFR for both -Americans and non- Americans. The National Kidney Disease Education Program (NKDEP) does not endorse the use of the MDRD equation for patients that are not between the ages of 18 and 70, are , have extremes of body size, muscle mass, or nutritional status, or are non- or non-. According to the National Kidney Foundation, irrespective of diagnosis, the stage of the disease is based on the level of kidney function: Stage Description GFR(mL/min/1.73 m(2)) 1 Kidney damage with normal or decreased GFR 90 2 Kidney damage with mild decrease in GFR 60-89 3 Moderate decrease in GFR 30-59 4 Severe decrease in GFR 15-29 5 Kidney failure <15 (or dialysis) 15 this week please 16 RESULT: No apparent monoclonal protein on serum electrophoresis. Test Performed by: [place] [address] Train Braker: Maximo Craft II, M.D., Ph.D. 17 AA 10/02 18 SEE RESULT BELOW Name: YUKI MENDOZA I : [address]: Nnamdi Weinberg MD Acct: [id number] Unit: [id number] AGE: 79 Location: [facility] Re09/25/14 SEX: F Status: REG REF SPEC: [id number] REBECCA: 09/25/14-[address]: Nnamdi Weinberg MD REQ: [id number] RECD: 09/25/14-1843 STATUS: COMP [facility] DR: Jerald Paz MD _ SOURCE: URINE SPDESC: ORDERED: Urine Culture Procedure Result Verified Site Urine Culture Final 09/27/14- 1039 ML Organism 1 NORMAL JOSE DANIEL [place] Count 10-25,000 (Moderate) CFU/ML * ML - MAIN LAB (PSC1) . END OF REPORT * ML=Testing performed at Main Lab DEPARTMENT OF PATHOLOGY, [address] [place] [address] Jt Haas M.D. Director [facility] # [id number] 19 Because ethnic data is not always readily available, this report includes an eGFR for both -Americans and non- Americans. The National Kidney Disease Education Program (NKDEP) does not endorse the use of the MDRD equation for patients that are not between the ages of 18 and 70, are , have extremes of body size, muscle mass, or nutritional status, or are non- or non-. According to the National Kidney Foundation, irrespective of diagnosis, the stage of the disease is based on the level of kidney function: Stage Description GFR(mL/min/1.73 m(2)) 1 Kidney damage with normal or decreased GFR 90 2 Kidney damage with mild decrease in GFR 60-89 3 Moderate decrease in GFR 30-59 4 Severe decrease in GFR 15-29 5 Kidney failure <15 (or dialysis) 20 AA 10/02 Procedures Date Code Description Status 02/08/2018 418644903 Bone Mineral Density Test Completed 09/15/2017 44980 Admin Of Inj Completed 09/03/2017 36069 Holter Monitor Review (24 hr)dr review & interp only Completed 08/07/201757323 Inject/Drain Joint/Bursa Major W/O US Completed 07/31/2017 83981 Inject/Drain Joint/Bursa Major W/O US Completed 07/22/201765693 Inject/Drain Joint/Bursa Major W/O US Completed 03/18/2017 40415 Admin Of Inj Completed 09/15/2016 74662 Admin Of Inj Completed 09/02/2016 326805477 Bone Mineral Density Test Completed 03/24/2016 21372 Chemotherpy Admin Subcutaneous/Im Non-Hormonal Completed Anti-Neoplastic 12/26/2015 53273 Inject/Drain Joint/Bursa Major W/O US Completed 12/19/2015 79498 Inject/Drain Joint/Bursa Major W/O US Completed 12/12/2015 03860 Inject/Drain Joint/Bursa Major W/O US Completed 09/04/2015 17014 Chemotherpy Admin Subcutaneous/Im Non-Hormonal Completed Anti-Neoplastic 01/03/2015 80088 Inject/Drain Joint/Bursa Major W/O US Completed 10/02/2014 28802 TKR Total Knee Replacement Completed 10/02/2014 80205 TKR Total Knee Replacement Completed 05/16/2014 11231 Inject/Drain Joint/Bursa Major W/O US Completed 09/01/2012 79519 Rad Exam; LS Spine Comp Completed 09/01/2012 96939 Rad Exam; LS Spine Comp Completed 02/18/2012 53637 Rad Exam; Knee Comp Completed 02/18/2012 14399 Xray Knee 3 Views Completed 12/11/2010 Inject/Drain Joint/Bursa Major W/O US Completed 08/29/2010 99647 Xray Knee 3 Views Completed 08/29/2010 52403 Xray Knee 3 Views Completed Encounters Type Date Location Provider Dx Diagnosis Office Visit 09/15/2017 Rheumatology Andrea Zavala Age-related 11:00a Services Of [facility]iat Johnson osteoporosis w/o current pathological fracture M17.12 Unilateral primary osteoarthritis, left knee Z79.899 Other custodial (current) drug therapy M54.5 Low back pain Office Visit 08/31/2017 10:45a Orthopedic Ankita Jim, S32.82xD Mult fx of Services Of CrowAMorales Johnson pelv w/o disrupt of pelv ring, 7thD M25.552 Pain in left hip Office Visit 07/06/2017 1:00p Orthopedic Services Ankita Jim, M25.552 Pain in left Of C.M.A. MMoralesDMorales hip M81.0 Age-related osteoporosis w/o current pathological fracture M17.12 Unilateral primary osteoarthritis, left knee M25.562 Pain in left knee M25.462 Effusion, left knee S32.82xA Multiple fx of pelvis w/o disrupt of pelvic ring, init Office Visit 03/18/2017 Rheumatology Edgar Bess7.12 Unilateral primary 1:00p Services Of Liat Fonseca M.D. osteoarthritis, left knee M81.0 Age-related osteoporosis w/o current pathological fracture M54.5 Low back pain Z79.899 Other terminal carman (current) drug therapy M81.0 Age-related osteoporosis w/o current pathological fracture Office Visit 12/22/2016 11:20a Rheumatology Edgar Mendez Age-related Services Of Liat Fonseca M.D. osteoporosis w/o current pathological fracture K02.3 Arrested dental caries Office Visit 09/15/2016 2:40p Rheumatology Edgar Mendez Age-related Services Of Liat Fonseca M.D. osteoporosis w/o current pathological fracture M81.0 Age-related osteoporosis w/o current pathological fracture Z79.899 Other custodial (current) drug therapy M17.12 Unilateral primary osteoarthritis, left knee M54.5 Low back pain Z79.899 Other terminal carman (current) drug therapy Office Visit 06/16/2016 1:40p Rheumatology Edgar Penaloza0 Age-related Services Of Liat Fonseca M.D. osteoporosis w/o current pathological fracture M17.12 Unilateral primary osteoarthritis, left knee M54.5 Low back pain Z79.899 Other custodial (current) drug therapy M79.1 Myalgia Office Visit 03/24/2016 4:40p Rheumatology Edgar Scherer81.0 Age-related Services Of Liat Fonseca M.D. osteoporosis w/o current pathological fracture M17.12 Unilateral primary osteoarthritis, left knee M54.5 Low back pain G62.9 Polyneuropathy, unspecified Z79.899 Other terminal carman (current) drug therapy Office Visit 12/04/2015 3:00p Rheumatology Services Diandra Grimaldo, M54.[address] [facility] [employer] pain M81.0 Age-related osteoporosis w/o current pathological fracture Z79.899 Other terminal carman (current) drug therapy Z85.3 Personal history of malignant neoplasm of breast Z23 Encounter for immunization Office Visit 11/23/2015 11:00a Rheumatology Edgar Scherer81.0 Age-related Services Of Liat Fonseca M.D. osteoporosis w/o current pathological fracture Z79.899 Other custodial (current) drug therapy M79.1 Myalgia Office Visit 10/24/2015 1:00p Orthopedic Justine Z47.1 Aftercare Services Of TESSY Carter following joint C.M.A. replacement surgery Z96.651 Presence of right artificial knee joint M17.12 Unilateral primary osteoarthritis, left knee Office Visit 08/17/2015 Rheumatology Edgar M17.0 Bilateral primary 12:00p Services Of Liat Fonseca M.D. osteoarthritis of knee M54.5 Low back pain E04.1 Nontoxic single thyroid nodule M81.0 Age-related osteoporosis w/o current pathological fracture M23.8x1 Other internal derangements of right knee M23.8x2 Other internal derangements of left knee Office Visit 07/18/2015 Rheumatology Edgar M17.0 Bilateral primary 3:00p Services Of Liat Fonseca M.D. osteoarthritis of knee M54.5 Low back pain Z79.899 Other terminal carman (current) drug therapy E04.1 Nontoxic single thyroid nodule M81.0 Age-related osteoporosis w/o current pathological fracture Z87.310 Personal history of (healed) osteoporosis fracture Office Visit 04/05/2015 11:30a Orthopedic Services Nnamdi Weinberg, M54.5 Low back Of C.M.A. M.D. pain M17.0 Bilateral primary osteoarthritis of knee Z96.651 Presence of right artificial knee joint Office Visit 01/03/2015 Orthopedic Nnamdi M17.0 Bilateral primary 11:30a Services Of Elizabeth Weinberg osteoarthritis of C.M.A. knee Z47.1 Aftercare following joint replacement surgery Z96.651 Presence of right artificial knee joint M17.12 Unilateral primary osteoarthritis, left knee Office Visit 09/05/2014 Orthopedic Nnamdi 715.96 Osteoarthrosis 11:15a Services Of Elizabeth Weinberg Unspec Genlzd Or C.M.A. Localized Lower Leg Office Visit 08/01/2014 Orthopedic [facility] 715.96 Osteoarthrosis 4:15p Services Of TESSY Carter Unspec Genlzd Or C.M.A. Localized Lower Leg Office Visit 07/11/2014 Orthopedic Justine 715.96 Osteoarthrosis 12:00p Services Of TESSY Carter Unspec Genlzd Or C.M.A. Localized Lower Leg Office Visit 05/16/2014 [facility] Nnamdi 715.96 Osteoarthrosis 2:15p Services Of Elizabeth Weinberg Unspec Genlzd Or C.M.A. Localized Lower Leg Office Visit 04/18/2014 Orthopedic Justine 715.96 Osteoarthrosis 1:30p Services Of TESSY Carter Unspec Genlzd Or C.M.A. Localized Lower Leg Office Visit 09/22/2012 Orthopedic Otto Rizzo 847.2 Sprains & Strains 2:15p Services Of Elizabeth Lumbar C.M.A. Office Visit 09/01/2012 Orthopedic Nic More7.2 Sprains & Strains 9:00a Services Of Len Lumbar C.M.A. R.P.A.-C Office Visit 02/18/2012 Orthopedic Nnamdi 715.96 Osteoarthrosis 3:30p Services Of Elizabeth Weinberg Unspec Genlzd Or C.M.A. Localized Lower Leg Office Visit 12/11/2010 Orthopedic Nnamdi 715.96 Osteoarthrosis 11:30a Services Of Elizabeth Weinberg Unspec Genlzd Or C.M.A. Localized Lower Leg Office Visit 11/28/2010 Orthopedic Nnamdi 715.96 Osteoarthrosis 10:45a Services Of Elizabeth Weinberg Unspec Genlzd Or C.M.A. Localized Lower Leg Office Visit 08/29/2010 Orthopedic Nnamdi 715.96 Osteoarthrosis 2:30p Services Of Elizabeth Weinberg Unspec Genlzd Or C.M.A. Localized Lower Leg Office Visit 07/12/2009 [facility], 786.50 Pain Chest Unspec 2:15a sabas Montalvo M.D. Hospitalists Office Visit 07/11/2009 [facility], 786.50 Pain Chest Unspec 4:15a sabas Montalvo M.D. Hospitalists Plan of Treatment Future Appointment(s):03/16/2018 1:40 pm - Philippe Sanchez MD at [facility]03/18/2018 11:00 am - Edgar Fonseca M.D. at Rheumatology Services Of [facility]02/11/2018 - Philippe Sanchez, MDM81.0 Age-related osteoporosis without current pathological fractuFollow up:1 monthInstructions: 1. Restart TUMS 2-3 tablets/day -- for calcium. 2. Restart vitamin D 2000 units once daily. 3. Checkblood tests in March 2018 before your next visit. 4. Return in 1 month for a follow-up visit.K21.9 Gastro-esophageal reflux disease without gbwxqknuswiY20.5 Low back pain
--- NOTE | 2018-03-12 14:55 | ED ---
HPI Cardiac - HPI Summary HPI Summary: Patient is a 82 y/o F presenting to ED with complaints of chest pain with radiation to upper arms bilaterally, palpitations, diaphoresis, SOB, shakiness, nausea onsetting today while riding a bike at [employer]. She states that she has been experiencing palpitations for "years". Patient reports that Dr. Lin performed a heart catheter 6-7 years ago. She states that she began to experience palpitations once more in the fall. Patient had cardiac workup this past January. In the room, she denies SOB and chest pain is still present at this time. PMHx of anxiety, GERD. Patient also notes that she had Holter monitor this past summer, Dr. Cohen reported no abnormalities. She states that she had one cup of coffee today after not having since the end of January of 2018. Patient also reports that she is under a lot of stress. She is on Prolia, patient does not take ASA daily. On triage, pain is rated 2/10, nothing is noted to aggravate/alleviate Sx. Home medications, allergies, and nurses note reviewed. - History of Current Complaint Chief Complaint: EDChestPainROMI Stated Complaint: CHEST PAIN Time Seen by Provider: 03/12/18 14:40 Hx Obtained From: Patient Onset/Duration: Started Days Ago - present Sx, Resolved - chest pain, SOB Timing: Constant, Lasting Hours Initial Severity: Mild - 2/10 Current Severity: None Pain Intensity: 2 Pain Scale Used: 0-10 Numeric - 2/10 Chest Pain Radiates: Yes Chest Pain Radiates To:: Arm - upper arms bilaterally Aggravating Factor(s): Nothing Alleviating Factor(s): Nothing Associated Signs and Symptoms: Positive: Chest Pain, Shortness of Breath, Diaphoresis, Nausea, Palpitations, Other: - POSITIVE - SHAKINESS, RADIATION OF PAIN TO UPPER ARMS BILATERALLY - Additional Pertinent History Primary Care Physician: [id number] - Allergy/Home Medications Allergies/Adverse Reactions: Allergies Allergy/AdvReac Type Severity Reaction Status Date / Time aspirin Allergy GI Upset Verified 03/12/18 14:18 cimetidine Allergy Hives Verified 03/12/18 14:18 codeine Allergy Rash Verified 03/12/18 14:18 epinephrine Allergy Tachycardia Verified 03/12/18 14:18 ibuprofen Allergy GI Upset Verified 03/12/18 14:18 Penicillins Allergy Vomiting Verified 03/12/18 14:18 Home Medications: Home Medications Multivitamins/Minerals TAB* [Theragran/minerals TAB*] 1 tab PO DAILY 03/12/18 [ History Confirmed 03/12/18] clonazePAM TAB(*) [Klonopin TAB(*)] 0.5 mg PO DAILY PRN 03/12/18 [History Confirmed 03/12/18] PMH/Surg Hx/FS Hx/Imm Hx Endocrine/Hematology History: Reports: Hx Thyroid Disease - ok now Denies: Hx Diabetes, Hx Anemia Cardiovascular History: Denies: Hx Hypertension, Hx Pacemaker/ICD, Other Cardiovascular Problems/ Disorders GI History: Reports: Hx Gastroesophageal Reflux Disease, Hx Hiatal Hernia Denies: Hx Jaundice, Other GI Disorders History: Denies: Hx Renal Disease Musculoskeletal History: Reports: Hx Arthritis - knees, Hx Osteoporosis, Other Musculoskeletal History - OSTEROPEROSIS Sensory History: Reports: Hx Cataracts - ce, Hx Contacts or Glasses, Hx Glaucoma, Hx Hearing Aid - ce Opthamlomology History: Reports: Hx Cataracts - ce, Hx Contacts or Glasses, Hx Glaucoma Psychiatric History: Reports: Hx Anxiety, Hx Depression - last winter, on meds Denies: Hx Panic Disorder - Cancer History Cancer Type, Location and Year: COLON-1985. BREAST-2013 Hx Chemotherapy: No Hx Radiation Therapy: No - Surgical History Surgery Procedure, Year, and Place: colon cancer sigmoid colon resection;. Left knee surgery 1996,. [place] [facility] [place];. thyroid;1969. GB removed,. left breast lumpectomy with radiationtreatment- 2013. RIGHT KNEE REPLACEMENT-10/02/14 Hx Anesthesia Reactions: No Infectious Disease History: No Infectious Disease History: Reports: Hx Clostridium Difficile - 2004 Denies: Traveled Outside the [place] in Last 30 Days - Family History Known Family History: Negative: Blood Disorder - Social History Alcohol Use: Daily Alcohol Amount: 1/2 glass wine daily Substance Use Type: Reports: None Smoking Status (MU): Former Smoker Type: Cigarettes Amount Used/How Often: until age 27 Have You Smoked in the Last Year: No Review of Systems Positive: Skin Diaphoresis, Other - POSITIVE - SHAKINESS Positive: Palpitations, Chest Pain Positive: Shortness Of Breath Positive: Nausea Positive: Other - POSITIVE - UPPER ARM PAIN BILATERALLY All Other Systems Reviewed And Are Negative: Yes Physical Exam - Summary Physical Exam Summary: Appearance: Well appearing, no pain distress Skin: warm, dry, reflects adequate perfusion Head/face: normal Eyes: EOMI, YOAV ENT: mucous membranes moist Neck: supple, non-tender Respiratory: CTA, breath sounds present Cardiovascular: irregularly irregular, no murmur, pulses symmetrical Abdomen: non-tender, soft Bowel Sounds: present Musculoskeletal: normal, strength/ROM intact Neuro: normal, sensory motor intact, A&Ox3 Triage Information Reviewed: Yes Vital Signs On Initial Exam: Initial Vitals Temp Pulse Resp BP Pulse Ox 98.6 F 103 17 142/61 98 03/12/18 14:15 03/12/18 14:15 03/12/18 14:15 03/12/18 14:15 03/12/18 14:15 Vital Signs Reviewed: Yes Diagnostics - Vital Signs Vital Signs Temp Pulse Resp BP Pulse Ox 03/12/18 14:15 98.6 F 103 17 142/61 98 - Laboratory Result Diagrams: 03/12/18 14:50 03/12/18 14:50 Lab Statement: Any lab studies that have been ordered have been reviewed, and results considered in the medical decision making process. - Radiology CXR Radiology Interpretation Completed By: Radiologist Summary of Radiographic Findings: IMPRESSION: #. Stigmata of obstructive lung disease. No acute pulmonary or cardiac process evident. This report was reviewed by ED physician. - EKG 1420 Cardiac Rate: NL - rate of 97 BPM EKG Rhythm: Sinus Rhythm Summary of EKG Findings: EKG showed NSR with rate of 97 BPM, left axis deviation , normal ST, ventricular bigeminy Re-Evaluation - Re-Evaluation First Eval Re-Evaluation Time: 16:07 Comment: Results of labs and tests were discussed. Offered admission to patient but she declined. She will be discharged to home, follow up with farmworker livestock. Disposition - Course Course Of Treatment: Nurse's notes reviewed. Patient with a history of PVCs having increased frequency of these since exercising today. Her troponins are negative. She felt much better after beta jason resulted in many fewer PVCs. She'll continue on this treatment. She was offered admission here and explicitly refused this. Return precautions provided including informing her that these would possibly be caused by ischemic changes. She will follow up closely with her primary farmworker livestock and primary care physician. - Differential Dx - Cardiopulmonary Differential Diagnoses - Cardiopulmonary: Other - Ischemic heart disease, V. tach, other arrhythmia - Diagnoses Provider Diagnoses: Chest pain, PVCs (premature ventricular contractions) Discharge - Sign-Out/Discharge Documenting (check all that apply): Patient Departure - discharge - Discharge Plan Condition: Improved Disposition: HOME Prescriptions: Metoprolol Succinate XL TAB* [Toprol XL TAB*] 25 mg PO DAILY #30 tab.xl Patient Education Materials: Chest Pain (ED), Premature Ventricular Contractions (ED) Referrals: Estefania Moore MD [Primary Care Provider] - Additional Instructions: Take a baby aspirin every morning. Call your doctor now to schedule prompt follow-up. You will also likely need a stress test performed. Return with recurring chest pain, shortness of breath, worse, new symptoms or other concerns as discussed. - Billing Disposition and Condition Condition: IMPROVED Disposition: Home - Attestation Statements Document Initiated by Cadenceibkrish: Yes Documenting Scribe: LAZARUS YUNG Provider For Whom Scribe is Documenting (Include Credential): OVIDIO PAINTER MD Scribe Attestation: LAZARUS Gilliam , scribed for OVIDIO PAINTER MD on 03/12/18 at 1938. Scribe Documentation Reviewed: Yes Provider Attestation: The documentation as recorded by the LAZARUS del castillo accurately reflects the service I personally performed and the decisions made by , OVIDIO PAINTER MD Status of Scribe Document: Viewed
[2018-03-12] MEDS ORDERED: Famotidine TAB* 20 MG PO ONE (14:57)
[2018-03-12] MEDS ORDERED: Metoprolol Tartrate IV* 1 MG/ML 5 ML VIAL IV ONE (14:57)
[2018-03-12 14:58] LABS: ABS Basophils 0.1 10^3/ul (0-0.2); ABS Eosinophils 0.1 10^3/ul (0-0.6); ABS Lymphocytes 2.8 10^3/ul (1.0-4.8); ABS Monocytes 0.9 10^3/ul (0-0.8); ABS Neutrophils 4.6 10^3/ul (1.5-7.7); ABS Nucleated RBC 0 10^3/ul; Eosinophil % 0.9 %; Hematocrit 40 % (35-47); Hemoglobin 13.4 g/dl (12.0-16.0); Lymphocyte % 32.8 %; Mean Corpuscular HGB Conc 34 g/dl (31-36); Mean Corpuscular Hemoglobin 31 pg (27-31); Mean Corpuscular Volume 92 fL (80-97); Mean Platelet Volume 10.7 fL (7.4-10.4); Nucleated Red Blood Cells % 0.1; Platelet Count 146 10^3/ul (150-450); Red Blood Count 4.32 10^6/ul (4.00-5.40); Red Cell Distribution Width 15 % (10.5-15); White Blood Count 8.4 10^3/ul (3.5-10.8)
[2018-03-12] MEDS ORDERED: Clopidogrel TAB* 75 MG PO ONE (14:58)
[2018-03-12 15:14] LABS: INR 0.86 (0.77-1.02)
[2018-03-12 15:25] LABS: Albumin 3.8 g/dL (3.2-5.2); Albumin/Globulin Ratio 1.5 (1-3); BUN/Creatinine Ratio 20.2 (8-20); Calcium 9.3 mg/dL (8.6-10.3); EGFR Non-African American 64.6 (>60); Globulin 2.6 g/dL (2-4); Potassium 4.1 mmol/L (3.5-5.0); Total Bilirubin 0.3 mg/dL (0.2-1.0); Total Protein 6.4 g/dL (6.4-8.9)
[2018-03-12] MEDS ORDERED: Metoprolol Succinate XL TAB* 25 MG PO ONE (16:10)
[2018-03-12 16:52] VITALS: BP 134/72
== END 2018-03-12 16:50 | disposition home or self-care (01) ==
LOC: ED 14:13
DX: R07.9 Chest pain, unspecified (principal); I49.3 Ventricular premature depolarization; K21.9 Gastro-esophageal reflux disease without esophagitis; F41.9 Anxiety disorder, unspecified; F32.9 Major depressive disorder, single episode, unspecified; Z85.3 Personal history of malignant neoplasm of breast; Z85.038 Personal history of other malignant neoplasm of large intestine; Z87.891 Personal history of nicotine dependence
CPT/HCPCS: 36415; 71045; 80053; 83605; 84484; 85025; 85610; 93005; 96374; 99282; A9270-GY; J3490

== ENCOUNTER 2018-06-19 17:47 | Emergency (ER) | payer MEDICARE, OTHER ==
[2018-06-19] MEDS ORDERED: NS 0.9% 1000 ML** 1,000 ML IV.FLUID IV ONE (20:45)
--- NOTE | 2018-06-19 20:46 | ED ---
Shortness of Breath - HPI Summary HPI Summary: This patient is an 83 year old female with a chief complaint of intermittent shortness of breath since this morning. She states she slipped in a bath tub 2 weeks ago and developed right-sided rib pain one week ago. She reports neck stiffness since 3 days ago and pain behind her right ear since this morning. She went to a physical therapist yesterday and states her pain did not resolve. The patient denies coughing and chills. She rates her pain 10/10 in severity. The patient has a Hx of osteoporosis. - History of Current Complaint Chief Complaint: EDShortnessOfBreath Time Seen by Provider: 06/19/18 20:25 Hx Obtained From: Patient Onset/Duration: Lasting Hours Dyspnea At: Rest - Allergy/Home Medications Allergies/Adverse Reactions: Allergies Allergy/AdvReac Type Severity Reaction Status Date / Time aspirin Allergy GI Upset Verified 03/12/18 14:18 cimetidine Allergy Hives Verified 03/12/18 14:18 codeine Allergy Rash Verified 03/12/18 14:18 epinephrine Allergy Tachycardia Verified 03/12/18 14:18 ibuprofen Allergy GI Upset Verified 03/12/18 14:18 ketorolac Allergy GI Upset Verified 06/19/18 17:52 Penicillins Allergy Vomiting Verified 03/12/18 14:18 Home Medications: Home Medications Cyanocobalamin (Vitamin B-12) [Vitamin B-12] 1,000 mcg PO DAILY 06/19/18 [ History Confirmed 06/19/18] Cyclobenzaprine TAB* [Flexeril 10 MG TAB*] 10 mg PO TID PRN 06/19/18 [History Confirmed 06/19/18] traMADol TAB* [Ultram*] 50 - 100 mg PO Q12H PRN 06/19/18 [History Confirmed ] PMH/Surg Hx/FS Hx/Imm Hx Endocrine/Hematology History: Reports: Hx Thyroid Disease - ok now Denies: Hx Diabetes, Hx Anemia Cardiovascular History: Denies: Hx Angina, Hx Coronary Artery Disease, Hx Hypercholesterolemia, Hx Hypertension, Hx Myocardial Infarction, Hx Pacemaker/ICD, Hx Valvular Heart Disease, Other Cardiovascular Problems/Disorders Respiratory History: Denies: Hx Asthma, Hx Chronic Obstructive Pulmonary Disease (COPD) GI History: Reports: Hx Gastroesophageal Reflux Disease, Hx Hiatal Hernia Denies: Hx Jaundice, Other GI Disorders History: Denies: Hx Renal Disease Musculoskeletal History: Reports: Hx Arthritis - knees, Hx Osteoporosis, Other Musculoskeletal History - OSTEROPEROSIS Sensory History: Reports: Hx Cataracts - ce, Hx Contacts or Glasses, Hx Glaucoma, Hx Hearing Aid - ce Opthamlomology History: Reports: Hx Cataracts - ce, Hx Contacts or Glasses, Hx Glaucoma Psychiatric History: Reports: Hx Anxiety, Hx Depression - last winter, on meds Denies: Hx Panic Disorder - Cancer History Cancer Type, Location and Year: COLON-1985. BREAST-2013 Hx Chemotherapy: No Hx Radiation Therapy: No - Surgical History Surgery Procedure, Year, and Place: colon cancer sigmoid colon resection;. Left knee surgery 1996,. rt knee meniscus 12/2007 AT [facility] [place],. R eye cataract;. thyroid;1969. GB removed,. left breast lumpectomy with radiationtreatment- 2013. RIGHT KNEE REPLACEMENT-10/02/14 Hx Anesthesia Reactions: No Infectious Disease History: No Infectious Disease History: Reports: Hx Clostridium Difficile - 2004 Denies: Traveled Outside the [place] in Last 30 Days - Family History Known Family History: Negative: Blood Disorder - Social History Alcohol Use: None Alcohol Amount: 1/2 glass wine daily Substance Use Type: Reports: None Smoking Status (MU): Former Smoker Type: Cigarettes Amount Used/How Often: until age 27 Have You Smoked in the Last Year: No Review of Systems Negative: Chills Positive: Shortness Of Breath. Negative: Cough Positive: Other - Neck stiffness, right sided rib-pain ,pain behind ear. All Other Systems Reviewed And Are Negative: Yes Physical Exam - Summary Physical Exam Summary: VITAL SIGNS: Reviewed. GENERAL: Patient is a well-developed and nourished FEMALE who is lying comfortable in the stretcher. Patient is not in any acute respiratory distress. HEAD AND FACE: No signs of trauma. No ecchymosis, hematomas or skull depressions. No sinus tenderness. EYES: PERRLA, EOMI x 2, No injected conjunctiva, no nystagmus. EARS: Hearing grossly intact. Ear canals and tympanic membranes are within normal limits. MOUTH: Oropharynx within normal limits. NECK: Supple, trachea is midline, no adenopathy, no JVD, no carotid bruit, no c- spine tenderness, neck with full ROM. CHEST: Symmetric, no tenderness at palpation LUNGS: Decreased breath sounds bilaterally. No wheezing or crackles. CVS: Tachycardia, S1 and S2 present, no murmurs or gallops appreciated. ABDOMEN: Soft, non-tender. No signs of distention. No rebound no guarding, and no masses palpated. Bowel sounds are normal. EXTREMITIES: FROM in all major joints, no edema, no cyanosis or clubbing. NEURO: Alert and oriented x 3. No acute neurological deficits. Speech is normal and follows commands. SKIN: Dry and warm Triage Information Reviewed: Yes Vital Signs On Initial Exam: Initial Vitals Temp Pulse Resp BP Pulse Ox 100.6 F 72 16 117/81 96 06/19/18 17:52 06/19/18 17:52 06/19/18 17:52 06/19/18 17:52 06/19/18 17:52 Vital Signs Reviewed: Yes Diagnostics - Vital Signs Vital Signs Temp Pulse Resp BP Pulse Ox 06/19/18 17:52 100.6 F 72 16 117/81 96 - Laboratory Result Diagrams: 06/19/18 21:18 06/19/18 21:18 Lab Statement: Any lab studies that have been ordered have been reviewed, and results considered in the medical decision making process. - Radiology CXR Radiology Interpretation Completed By: ED Physician Summary of Radiographic Findings: No acute process. Pending official radiologist report. - CT Cervical Spine CT Interpretation Completed By: Radiologist Summary of CT Findings: No acute cervical spine fracture. ED Provider has reviewed this report. CTA Chest CT Interpretation Completed By: Radiologist Summary of CT Findings: 1. No acute traumatic abnormality. 2. 4 mm right lower lobe nodule. For patients at low risk, no routine follow-up is indicated. For patients at high risk, consider optional CT at 12 months. 3. Enlarged and markedly heterogenous thyroid with multifocal clarifications. ED Provider has reviewed this report. - EKG 2140 Cardiac Rate: NL EKG Rhythm: Sinus Rhythm - [address] Segment: Normal Ectopy: PVCs Summary of EKG Findings: Left axis deviation. Course/Dx - Course Course Of Treatment: This patient is an 83 year old female with a chief complaint of intermittent shortness of breath since this morning. Imaging, labs , and EKG were unremarkable for cardiovascular problems. The patient will be discharged and instructed to return with any new or worsening symptoms. The patient is agreeable with this plan. - Diagnoses Provider Diagnoses: Chest wall pain Discharge - Sign-Out/Discharge Documenting (check all that apply): Patient Departure - Discharge Patient Received Moderate/Deep Sedation with Procedure: No - Discharge Plan Condition: Stable Disposition: HOME Patient Education Materials: Chest Pain (ED) Referrals: Estefania Moore MD [Primary Care Provider] - Additional Instructions: Return to ED with any new or worsening symptoms. - Billing Disposition and Condition Condition: STABLE Disposition: Home - Attestation Statements Document Initiated by Nikolas: Yes Documenting Scribe: Ze Ruiz Provider For Whom Nikolas is Documenting (Include Credential): Kylee Cardenas MD Scribe Attestation: Ze Gilliam, scribed for Kylee Cardenas MD on 06/20/18 at 3. Scribe Documentation Reviewed: Yes Provider Attestation: The documentation as recorded by the Ze del castillo accurately reflects the service I personally performed and the decisions made by me, Kylee Cardenas MD Status of Scribe Document: Viewed
[2018-06-19] MEDS ORDERED: Morphine 4 MG/ML VIAL (1 ml) 4 MG/ML VIAL IV ONE (20:48)
[2018-06-19] MEDS ORDERED: Acetaminophen TAB* 325 MG PO ONE (20:48)
[2018-06-19] MEDS ORDERED: Ondansetron INJ* 2 MG/ML VIAL IV ONE (20:49)
[2018-06-19 21:27] LABS: ABS Basophils 0 10^3/ul (0-0.2); ABS Eosinophils 0.1 10^3/ul (0-0.6); ABS Lymphocytes 1.8 10^3/ul (1.0-4.8); ABS Monocytes 1.3 10^3/ul (0-0.8); ABS Nucleated RBC 0 10^3/ul; Eosinophil % 0.6 %; Hematocrit 40 % (33-41); Hemoglobin 13.2 g/dL (12.0-16.0); Lymphocyte % 19.4 %; Mean Corpuscular HGB Conc 33 g/dL (31-36); Mean Corpuscular Hemoglobin 31 pg (27-31); Mean Corpuscular Volume 93 fL (80-97); Mean Platelet Volume 11.4 fL (7.4-10.4); Nucleated Red Blood Cells % 0.1; Platelet Count 143 10^3/uL (150-450); Red Blood Count 4.28 10^6 /uL (3.70-4.87); Red Cell Distribution Width 14 % (10.5-15); White Blood Count 9.1 10^3/uL (3.5-10.8)
[2018-06-19 21:38] LABS: Activated Partial Thrombo Time 29.1 seconds (26.0-36.3); INR 0.94 (0.77-1.02)
[2018-06-19 21:46] LABS: Albumin 3.7 g/dL (3.2-5.2); Albumin/Globulin Ratio 1.2 (1-3); BUN/Creatinine Ratio 16.3 (8-20); C Reactive Protein 50.56 mg/L (<8.01); Calcium 9.3 mg/dL (8.6-10.3); EGFR African American 82.5 (>60); EGFR Non-African American 68.2 (>60); Globulin 3.2 g/dL (2-4); Potassium 4.1 mmol/L (3.5-5.0); Total Bilirubin 0.4 mg/dL (0.2-1.0); Total Protein 6.9 g/dL (6.4-8.9)
[2018-06-19 21:48] LABS: Troponin I 0.01 ng/mL (<0.04)
[2018-06-19 21:54] LABS: Influenza A Molecular NEGATIVE (Negative); Influenza B Molecular NEGATIVE (Negative)
[2018-06-19] MEDS ORDERED: Iohexol 350* (CONTRAST) 500 ML MDV IV ONE (22:09)
[2018-06-19 22:59] LABS: Urine Appearance Clear; Urine Bacteria Absent (Absent); Urine Bilirubin Negative (Negative); Urine Blood 2+ (Negative); Urine Color Straw; Urine Glucose Negative (Negative); Urine Ketones 1+ (Negative); Urine Nitrite Negative (Negative); Urine Protein Negative (Negative); Urine Red Blood Cell Trace(0-2/hpf) (Absent); Urine Squamous Epithelial Cell Present (Absent); Urine Urobilinogen Negative (Negative); Urine White Blood Cell Trace(0-5/hpf) (Absent)
[2018-06-20 00:25] VITALS: BP 109/72
== END 2018-06-20 00:26 | disposition home or self-care (01) ==
LOC: ED 17:47
DX: R07.89 Other chest pain (principal); Z88.5 Allergy status to narcotic agent; Z88.0 Allergy status to penicillin
CPT/HCPCS: 36415; 71045; 71275; 72125; 74177; 80053; 81003; 81015; 83605; 84484; 85025; 85610; 85730; 86140; 87040; 87086; 93005; 96361; 96374; 96375; 99283; A9270-GY; J2270; J2405; Q9967